=== PATIENT | male | born 1950 ===

== ENCOUNTER 2018-06-16 06:00 | Day surgery (SDC) | payer OTHER ==
[~2018-06-16 06:00] MED LIST: AVAPRO150 MG PO
[2018-06-16] MEDS ORDERED: RECTICARE30 GM TOP (09:06)
[2018-06-16] MEDS ORDERED: KETO10TA2 PO (09:06)
[2018-06-16] MEDS ORDERED: PERCOCET 5-3251 EACH PO (09:06)
== END 2018-06-16 13:30 | disposition home or self-care (01) ==
LOC: CIR.AMB 06:00
DX: K64.2 Third degree hemorrhoids (principal)